=== PATIENT | female | born 1980 | race American Indian/Alaskan Native ===

== ENCOUNTER 2020-10-01 15:05 | Emergency (ER) | payer SELFPAY ==
--- NOTE | 2020-10-01 18:26 | Event Note ---
ED Screening Note Date of service: 10/01/20 Time: 18:23 ED Screening Note: 40-year-old female patient presents emergency department with complaints of abdominal pain, nausea, vomiting, and diarrhea progressively worsening for the last several months. Pain is primarily localized to the right lower quadrant. She endorses a 69 pound unintentional weight loss over the last 3 months. Patient was evaluated by a nurse practitioner at a local [facility], who ordered labs and instructed patient to come to the emergency department for further evaluation once the results became available. Patient was found to have a leukocytosis of 17,000 as well as a CRP of 22. Patient has never been evaluated outside of urgent care/emergency department for progressively worsening symptoms. General: Awake, appropriately interactive, no acute distress. Neck: Supple. Full range of motion intact. Cardiovascular: Normal peripheral perfusion. Pulmonary: No respiratory distress. Patient is speaking normally without use of accessory muscles. Abdomen: Right lower quadrant tenderness. Skin: No apparent rashes or lesions. Neurological: No facial asymmetry. Speech is clear. Follows commands. Patient is alert and oriented. Musculoskeletal: Moves all four extremities spontaneously with normal range of motion. Psych: Cooperative. Appropriate mood and affect. Labs from outside facility reviewed. CT of the abdomen/pelvis ordered. Attending emergency physician notified. I have greeted and performed a focused rapid initial assessment of this patient. A comprehensive ED assessment and evaluation of the patient, analysis of all test results, and completion of the medical decision-making process will be conducted by additional ED providers. This initial assessment/diagnostic orders/clinical plan/treatment(s) is/are subject to change based on patients health status, clinical progression and re-assessment. Further treatment and workup at subsequent clinical provider's discretion. Patient/guardian urged not to elope from the ED as their condition may be serious if not clinically assessed and managed.
[2020-10-01 18:43] LABS: Basophils # (Auto) 0.1 K/mm3 (0.0-0.1); Basophils % (Auto) 0.4 % (0.0-1.8); Eosinophils # (Auto) 0.1 K/mm3 (0.0-0.4); Eosinophils % (Auto) 0.5 % (0.0-4.3); Hematocrit 36.9 % (30.3-42.9); Hemoglobin 12.6 gm/dl (10.1-14.3); Lymphocytes # (Auto) 4.2 K/mm3 (1.2-5.4); Lymphocytes % (Auto) 28.3 % (13.4-35.0); Mean Corpuscular HGB Conc 34 % (30-34); Mean Corpuscular Volume 112 fl (79-97); Monocytes # (Auto) 0.4 K/mm3 (0.0-0.8); Monocytes % (Auto) 2.6 % (0.0-7.3); Platelet Count 433 K/mm3 (140-440); Red Blood Count 3.29 M/mm3 (3.65-5.03)
[2020-10-01 19:06] LABS: Alanine Aminotransferase 38 units/L (7-56); Albumin 4.3 g/dL (3.9-5); BUN/Creatinine Ratio 12; Blood Urea Nitrogen 12 mg/dL (7-17); Calcium 9.2 mg/dL (8.4-10.2); Hemolysis Index 10
[2020-10-01 19:11] LABS: Bilirubin,Urine SM (Negative); Blood,Urine NEG (Negative); Color,Urine Amber (Yellow); Hyaline Casts,Urine 2 /LPF; Mucus,Urine 3+ /HPF
[2020-10-01 19:16] LABS: Protein,Urine >500 mg/dL (Negative)
[2020-10-01 20:23] LABS: Ictotest,Urine Negative (Negative)
--- NOTE | 2020-10-01 22:24 | Cat Scan Report ---
CT abdomen pelvis w con INDICATION / CLINICAL INFORMATION: Pt states abd pain / nausea / vomiting / 70 lb weight loss. TECHNIQUE: All CT scans at this location are performed using CT dose reduction for ALARA by means of automated e xposure control. COMPARISON: 03/17/2018 FINDINGS: No free fluid is seen in the abdomen. The gallbladder has been surgically removed. Diffuse fatty infi ltration is present in the liver without focal abnormality. The spleen, kidneys, pancreas, adrenal gl ands and great vessels are normal. No enlarged mesenteric or retroperitoneal lymph nodes are identifi ed. In the pelvis, no free fluid is seen. There is questionable thickening of the wall of the proximal as cending colon. No enlarged lymph nodes are identified. The bladder is minimally distended. The append ix is normal. No significant skeletal abnormality is present. IMPRESSION: 1. Questionable thickening of the wall the proximal ascending colon 2. Diffuse fatty infiltration in the liver without focal abnormality 3. Cholecystectomy Signer Name: Tim DUNCAN Signed: 10/01/2020 10:20 PM Workstation Name: [id number]
[2020-10-02] MEDS ORDERED: ONDANSETRON 4 MG/2 ML INJ IV ONE ×2 (00:25→02:25)
[2020-10-02] MEDS ORDERED: SODIUM CHLORIDE 0.9% 1000 ML 1,000 ML IV ONE (00:25)
[2020-10-02] MEDS ORDERED: HYDROmorphone 1 MG/1 ML INJ IV ONE ×2 (00:25→01:58)
--- NOTE | 2020-10-02 00:25 | Emergency Department Report ---
ED Abdominal Pain HPI - General Chief Complaint: Nausea/Vomiting/Diarrhea Stated Complaint: REFERRED BY DOCTOR - STOMACH PUI?: No Time Seen by Provider: 10/02/20 00:20 Source: patient Mode of arrival: Ambulatory Limitations: No Limitations - History of Present Illness Initial Comments: Patient is a 40-year-old female who presents emergency room with complaints of right lower quadrant pain and nausea and vomiting and diarrhea. Patient states she also having dizziness. Patient states that her abdominal pain started approximately week ago. Patient states that he has been having intermittent nausea and vomiting and diarrhea for the past 3 months. Patient states that her dizziness started 3 days ago. Patient states her symptoms are worsening. Patient states her abdominal pain is a 10 out of 10. Patient states a stabbing pain. Patient denies fever and chills. Patient states that she saw her primary care today and they found her to have an elevated WBC. Patient presents her lab results from her primary care. Patient's labs significant for elevated WBC, 17.9 elevated C-reactive protein, low folate and low B12 and abnormal CBC Patient denies recent travel. Patient denies recent international travel. Kirk elliott denies exposure to the novel coronavirus. Patient denies sick contacts. Patient denies fever and chills. Patient denies cough. Patient denies coming in contact with anybody with symptoms of the novel coronavirus. MD Complaint: abdominal pain -: Sudden Location: RLQ Radiation: none Migration to: no migration Severity: severe Severity scale (0 -10): 10 Quality: stabbing Consistency: constant Improves With: rest Worsens With: eating, vomiting, movement Associated Symptoms: nausea, vomiting, diarrhea, anorexia. denies: fever, chills, constipation, dysuria, hematemesis, hematochezia, melena, hematuria, syncope - Related Data LMP (females 10-50): unknown Previous Rx's Medication Instructions Recorded Last Taken Type Ciprofloxacin HCl [Cipro] 500 mg PO BID 10 Days #20 tablet 03/17/18 Unknown Rx Ciprofloxacin HCl 500 mg PO BID 10 Days #20 tablet 10/02/20 Unknown Rx HYDROcodone/APAP 7.5-325 [[place] 1 each PO Q6HR PRN #12 tablet 10/02/20 Unknown Rx 7.5/325] Ondansetron [Zofran Odt] 4 mg PO Q6HR PRN #15 tab.rapdis 10/02/20 Unknown Rx metroNIDAZOLE [Flagyl] 500 mg PO Q8HR 10 Days #30 tab 10/02/20 Unknown Rx Allergies Allergy/AdvReac Type Severity Reaction Status Date / Time No Known Allergies Allergy Unverified 03/17/18 18:10 ED Review of Systems ROS: Stated complaint: REFERRED BY DOCTOR - STOMACH Other details as noted in HPI Constitutional: denies: chills, fever Eyes: denies: eye pain, eye discharge, vision change ENT: denies: ear pain, throat pain Respiratory: denies: cough, shortness of breath, wheezing Cardiovascular: denies: chest pain, palpitations Endocrine: no symptoms reported Gastrointestinal: as per HPI, abdominal pain, nausea, vomiting, diarrhea. denies: constipation, hematemesis, melena, hematochezia Genitourinary: denies: urgency, dysuria, discharge Musculoskeletal: denies: back pain, joint swelling, arthralgia Skin: denies: rash, lesions Neurological: denies: headache, weakness, paresthesias Psychiatric: denies: anxiety, depression Hematological/Lymphatic: denies: easy bleeding, easy bruising ED Past Medical Hx - Past Medical History Previous Medical History?: No Additional medical history: kidney infection - Surgical History Past Surgical History?: Yes Hx Cholecystectomy: Yes Additional Surgical History: hysterectomy - Social History Smoking Status: Never Smoker Substance Use Type: None - Medications Home Medications: Home Medications Medication Instructions Recorded Confirmed Last Taken Type Ciprofloxacin HCl [Cipro] 500 mg PO BID 10 Days #20 tablet 03/17/18 Unknown Rx Ciprofloxacin HCl 500 mg PO BID 10 Days #20 tablet 10/02/20 Unknown Rx HYDROcodone/APAP 7.5-325 [[place] 1 each PO Q6HR PRN #12 tablet 10/02/20 Unknown Rx 7.5/325] Ondansetron [Zofran Odt] 4 mg PO Q6HR PRN #15 tab.rapdis 10/02/20 Unknown Rx metroNIDAZOLE [Flagyl] 500 mg PO Q8HR 10 Days #30 tab 10/02/20 Unknown Rx ED Physical Exam - General Limitations: No Limitations ED Course Vital Signs 10/01/20 10/02/20 10/02/20 17:14 02:14 02:32 Temperature 98.8 F Pulse Rate 99 H 87 Respiratory 16 Rate Blood Pressure 117/80 Blood Pressure 146/102 [Right] O2 Sat by Pulse 97 97 Oximetry 10/02/20 10/02/20 10/02/20 02:34 02:46 03:00 Temperature Pulse Rate Respiratory 18 Rate Blood Pressure 117/80 116/62 Blood Pressure [Right] O2 Sat by Pulse 98 91 Oximetry 10/02/20 03:16 Temperature Pulse Rate Respiratory Rate Blood Pressure 116/62 Blood Pressure [Right] O2 Sat by Pulse 94 Oximetry - Reevaluation(s) Reevaluation #1: Patient states her pain is still severe. Patient will be given another [place] gram of Dilaudid. 10/02/20 01:57 Reevaluation #2: Patient states her pain is much better. Patient states her nausea is resolved. Patient tolerated p.o. challenge. I discussed all results and clinical findings with patient. I discussed plan of care with patient. Patient agrees with plan of care. Patient is stable for discharge. Patient will be discharged home. Patient given discharge instructions. Patient voiced understanding of discharge instructions. 10/02/20 03:45 ED Medical Decision Making - Lab Data Result diagrams: 10/01/20 18:31 10/01/20 18:31 - Radiology Data Radiology results: report reviewed CT abdomen pelvis w con INDICATION / CLINICAL INFORMATION: Pt states abd pain / nausea / vomiting / 70 lb weight loss. TECHNIQUE: All CT scans at this location are performed using CT dose reduction for ALARA by means of automated exposure control. COMPARISON: 03/17/2018 FINDINGS: No free fluid is seen in the abdomen. The gallbladder has been surgically removed. Diffuse fatty infiltration is present in the liver without focal abnormality. The spleen, kidneys, pancreas, adrenal glands and great vessels are normal. No enlarged mesenteric or retroperitoneal lymph nodes are identified. In the pelvis, no free fluid is seen. There is questionable thickening of the wall of the proximal ascending colon. No enlarged lymph nodes are identified. The bladder is minimally distended. The appendix is normal. No significant skeletal abnormality is present. IMPRESSION: 1. Questionable thickening of the wall the proximal ascending colon 2. Diffuse fatty infiltration in the liver without focal abnormality 3. Cholecystectomy - Medical Decision Making Patient is a 40-year-old female who presents emergency room with complaints of nausea, vomiting, diarrhea. Patient given Dilaudid and Zofran and her symptoms improved. Patient eventually tolerated a p.o. challenge. Patient states she feels much better with treatment. Patient had labs done which were essentially unremarkable except for elevated WBC and UTI. Patient given IV fluids and IV Zofran as well in the ER. Patient had a CT scan of the abdomen which shows possible colitis. Patient notified consistent with gastroenteritis. Patient will be referred to a dialysis nurse for further evaluation and treatment. Patient not require inpatient or further emergency medical services. Patient stable for discharge. Patient discharged home. Patient given discharge directions. - Differential Diagnosis Abdominal pain, gastroenteritis, nausea, vomiting, diarrhea, Critical care attestation.: If time is entered above; I have spent that time in minutes in the direct care of this critically ill patient, excluding procedure time. ED Disposition Clinical Impression: Colitis Abdominal pain Qualifiers: Abdominal location: right lower quadrant Qualified Code(s): R10.31 - Right lower quadrant pain Diarrhea Qualifiers: Diarrhea type: unspecified type Qualified Code(s): R19.7 - Diarrhea, unspecified UTI (urinary tract infection) Qualifiers: Urinary tract infection type: acute cystitis Hematuria presence: with hematuria Qualified Code(s): N30.01 - Acute cystitis with hematuria Nausea & vomiting Qualifiers: Vomiting type: unspecified Vomiting Intractability: non-intractable Qualified Code(s): R11.2 - Nausea with vomiting, unspecified Disposition: TO HOME OR SELFCARE Is pt being admited?: No Does the pt Need Aspirin: No Condition: Stable Instructions: Nausea and Vomiting, Adult, Viral Gastroenteritis, Adult, [id number], Antibiotic Medicine, Adult, [id number], Urinary Tract Infection, Adult, Food Choices to Help Relieve Diarrhea, Adult, Diarrhea, Adult, [id number] Additional Instructions: Patient to follow-up with primary care in 2 to 3 days. Patient to follow-up with dialysis nurse in 2 to 3 days. Patient to rest. Patient to increase water. Patient to avoid strenuous exercise or heavy lifting until cleared by primary care dialysis nurse. Patient to eat a brat diet. Patient to start a probiotic. Patient to take Tylenol as needed for pain. Patient to take meds as directed. Patient to return to the ER if condition worsens, changes or new symptoms arise. Prescriptions: Ciprofloxacin HCl 500 mg PO BID 10 Days #20 tablet metroNIDAZOLE [Flagyl] 500 mg PO Q8HR 10 Days #30 tab HYDROcodone/APAP 7.5-325 [[place] 7.5/325] 1 each PO Q6HR PRN #12 tablet PRN Reason: Pain Ondansetron [Zofran Odt] 4 mg PO Q6HR PRN #15 tab.rapdis PRN Reason: Nausea And Vomiting Time of Disposition: 02:12
[2020-10-02] MEDS ORDERED: PIPERACIL/TAZOBACTA 4.5/NS 100 4.5 GM/100 ML VIAL IV ONE (01:58)
[2020-10-02 03:28] VITALS: BP 116/62
== END 2020-10-02 04:14 | disposition home or self-care (01) ==
LOC: ED 15:05
DX: K52.9 Noninfective gastroenteritis and colitis, unspecified (principal); N39.0 Urinary tract infection, site not specified; R11.2 Nausea with vomiting, unspecified; Z90.49 Acquired absence of other specified parts of digestive tract; Z90.710 Acquired absence of both cervix and uterus; Z79.899 Other long term (current) drug therapy
CPT/HCPCS: 36415; 74177; 80053; 81001; 83735; 84443; 84703; 85025; 96361; 96365; 96375; 96376; 99284; J1170; J2405; J2543; J7030; Q9967

== ENCOUNTER 2021-02-04 13:32 | Emergency (ER) | payer SELFPAY ==
[2021-02-04 13:43] VITALS: BP 139/101
--- NOTE | 2021-02-04 14:51 | Emergency Department Report ---
ED General Adult HPI - General Chief complaint: Medical Clearance Stated complaint: HANDS AND FEET PAIN Time Seen by Provider: 02/04/21 14:15 Source: patient Mode of arrival: Ambulatory Limitations: No Limitations - History of Present Illness Initial comments: Is a 40-year-old female presents emergency department with chief complaint of sharp burning and stinging pain in her arms and legs shooting down from her knees to her feet and her elbows to her hands over the past 5 months. She reports in August she got her second Pfizer COVID-19 vaccine and shortly after she started to have the symptoms. She had not been seen by anybody about this complaint in the past. She states she has pain with any movement or touching of the extremities. Her pain intensifies with any movement. She states she has lost 60 pounds during this. She denies any nausea, vomiting, diarrhea, fever, chills, night sweats, headache, dizziness, blurry vision, chest pain, shortness of breath, weakness or any other associated symptoms. - Related Data Previous Rx's Medication Instructions Recorded Last Taken Type Ciprofloxacin HCl [Cipro] 500 mg PO BID 10 Days #20 tablet 03/17/18 Unknown Rx Ciprofloxacin HCl 500 mg PO BID 10 Days #20 tablet 10/02/20 Unknown Rx HYDROcodone/APAP 7.5-325 [[place] 1 each PO Q6HR PRN #12 tablet 10/02/20 Unknown Rx 7.5/325] Ondansetron [Zofran Odt] 4 mg PO Q6HR PRN #15 tab.rapdis 10/02/20 Unknown Rx metroNIDAZOLE [Flagyl] 500 mg PO Q8HR 10 Days #30 tab 10/02/20 Unknown Rx Gabapentin 100 mg PO Q8HR #30 capsule 02/04/21 Unknown Rx Allergies Allergy/AdvReac Type Severity Reaction Status Date / Time No Known Allergies Allergy Verified 02/04/21 13:47 ED Review of Systems ROS: Stated complaint: HANDS AND FEET PAIN Other details as noted in HPI Comment: All other systems reviewed and negative Constitutional: denies: chills, fever Eyes: denies: eye pain, eye discharge, vision change ENT: denies: ear pain, throat pain Respiratory: denies: cough, shortness of breath, wheezing Cardiovascular: denies: chest pain, palpitations Endocrine: no symptoms reported Gastrointestinal: denies: abdominal pain, nausea, diarrhea Genitourinary: denies: urgency, dysuria, discharge Musculoskeletal: denies: back pain, joint swelling, arthralgia Skin: denies: rash, lesions Neurological: as per HPI. denies: headache, weakness, paresthesias Psychiatric: denies: anxiety, depression Hematological/Lymphatic: denies: easy bleeding, easy bruising ED Past Medical Hx - Past Medical History Previous Medical History?: No Additional medical history: kidney infection - Surgical History Past Surgical History?: Yes Hx Cholecystectomy: Yes Additional Surgical History: hysterectomy - Social History Smoking Status: Never Smoker Substance Use Type: None - Medications Home Medications: Home Medications Medication Instructions Recorded Confirmed Last Taken Type Ciprofloxacin HCl [Cipro] 500 mg PO BID 10 Days #20 tablet 03/17/18 Unknown Rx Ciprofloxacin HCl 500 mg PO BID 10 Days #20 tablet 10/02/20 Unknown Rx HYDROcodone/APAP 7.5-325 [[place] 1 each PO Q6HR PRN #12 tablet 10/02/20 Unknown Rx 7.5/325] Ondansetron [Zofran Odt] 4 mg PO Q6HR PRN #15 tab.rapdis 10/02/20 Unknown Rx metroNIDAZOLE [Flagyl] 500 mg PO Q8HR 10 Days #30 tab 10/02/20 Unknown Rx Gabapentin 100 mg PO Q8HR #30 capsule 02/04/21 Unknown Rx ED Physical Exam - General Limitations: No Limitations General appearance: alert, in no apparent distress - Head Head exam: Present: atraumatic, normocephalic - Eye Eye exam: Present: normal appearance, PERRL, EOMI - ENT ENT exam: Present: normal exam, normal orophraynx, mucous membranes moist - Neck Neck exam: Present: normal inspection, full ROM. Absent: tenderness, meningismus - Respiratory Respiratory exam: Present: normal lung sounds bilaterally. Absent: respiratory distress, wheezes, rales, rhonchi, stridor - Cardiovascular Cardiovascular Exam: Present: regular rate, normal rhythm, normal heart sounds. Absent: systolic murmur, diastolic murmur, rubs, gallop - GI/Abdominal GI/Abdominal exam: Present: soft, normal bowel sounds. Absent: distended, tenderness, guarding, rebound, rigid - Extremities Exam Extremities exam: Present: normal inspection, full ROM, tenderness (Tenderness palpation of bilateral upper and lower extremities, no posterior calf tenderness, negative Homans' sign bilaterally.). Absent: pedal edema, calf tenderness - Back Exam Back exam: Present: normal inspection, full ROM. Absent: CVA tenderness (R), CVA tenderness (L), muscle spasm, paraspinal tenderness, vertebral tenderness - Neurological Exam Neurological exam: Present: alert, oriented X3, CN II-XII intact, normal gait, reflexes normal (Normal 2+ bilateral reflexes to the bilateral triceps, brachial radialis, patella and Achilles.) - Psychiatric Psychiatric exam: Present: normal affect, normal mood - Skin Skin exam: Present: warm, dry, intact, normal color. Absent: rash ED Course Vital Signs 02/04/21 13:39 Temperature 98.0 F Pulse Rate 84 Respiratory 16 Rate Blood Pressure 139/101 O2 Sat by Pulse 99 Oximetry ED Medical Decision Making - Lab Data Result diagrams: 02/04/21 14:50 02/04/21 14:50 Lab Results 02/04/21 02/04/21 Range/Units 14:50 14:50 WBC 10.9 (4.5-11.0) K/mm3 RBC 4.75 (3.65-5.03) M/mm3 Hgb 14.7 H (10.1-14.3) gm/dl Hct 45.2 H (30.3-42.9) % MCV 95 (79-97) fl MCH 31 (28-32) pg MCHC 33 (30-34) % RDW 15.6 H (13.2-15.2) % Plt Count 398 (140-440) K/mm3 Lymph % (Auto) 23.9 (13.4-35.0) % [place] % (Auto) 6.3 (0.0-7.3) % Eos % (Auto) 0.4 (0.0-4.3) % Baso % (Auto) 0.1 (0.0-1.8) % Lymph # (Auto) 2.6 (1.2-5.4) K/mm3 [place] # (Auto) 0.7 (0.0-0.8) K/mm3 Eos # (Auto) 0.0 (0.0-0.4) K/mm3 Baso # (Auto) 0.0 (0.0-0.1) K/mm3 Seg Neutrophils % 69.3 (40.0-70.0) % Seg Neutrophils # 7.5 (1.8-7.7) K/mm3 Sodium 139 (137-145) mmol/L Potassium 4.5 (3.6-5.0) mmol/L Chloride 103.2 (98-107) mmol/L Carbon Dioxide 25 (22-30) mmol/L Anion Gap 15 mmol/L BUN 8 (7-17) mg/dL Creatinine 0.7 (0.6-1.2) mg/dL Estimated GFR > 60 ml/min BUN/Creatinine Ratio 11 % Glucose 92 (65-100) mg/dL Calcium 9.6 (8.4-10.2) mg/dL Total Bilirubin 0.30 (0.1-1.2) mg/dL AST 26 (5-40) units/L ALT 23 (7-56) units/L Alkaline Phosphatase 112 (35-129) units/L Total Creatine Kinase 59 (30-135) units/L Total Protein 7.3 (6.3-8.2) g/dL Albumin 4.2 (3.9-5) g/dL Albumin/Globulin Ratio 1.4 % - Medical Decision Making Patient nontoxic no acute distress. No neuro deficits on exam. We will treat the patient with gabapentin and recommended outpatient follow-up with neurology and primary care. Return to the ER with any change or worsening symptoms. She was ambulatory with a steady gait. NIH score 0. - Differential Diagnosis Neuropathy, vaccine reaction, fibromyalgia Critical care attestation.: If time is entered above; I have spent that time in minutes in the direct care of this critically ill patient, excluding procedure time. ED Disposition Clinical Impression: Adverse reaction to COVID-19 vaccine, Neuropathy Disposition: 01 HOME / SELF CARE / HOMELESS Is pt being admited?: No Condition: Stable Prescriptions: Gabapentin 100 mg PO Q8HR #30 capsule Referrals: [facility] [Provider Group] - 3-5 Days ANASTASIYA STEVENSON MD [Staff Physician] - 3-5 Days ULISSES OWENS MD [Staff Physician] - 3-5 Days Forms: Work/School Release Form(ED)
[2021-02-04 15:33] LABS: Alanine Aminotransferase 23 units/L (7-56); Albumin 4.2 g/dL (3.9-5); Blood Urea Nitrogen 8 mg/dL (7-17); Calcium 9.6 mg/dL (8.4-10.2); Hemolysis Index 7
[2021-02-04 15:44] LABS: Basophils % (Auto) 0.1 % (0.0-1.8); Eosinophils % (Auto) 0.4 % (0.0-4.3); Hematocrit 45.2 % (30.3-42.9); Hemoglobin 14.7 gm/dl (10.1-14.3); Lymphocytes # (Auto) 2.6 K/mm3 (1.2-5.4); Lymphocytes % (Auto) 23.9 % (13.4-35.0); Mean Corpuscular HGB Conc 33 % (30-34); Mean Corpuscular Volume 95 fl (79-97); Monocytes # (Auto) 0.7 K/mm3 (0.0-0.8); Monocytes % (Auto) 6.3 % (0.0-7.3); Platelet Count 398 K/mm3 (140-440); Red Blood Count 4.75 M/mm3 (3.65-5.03); Red Cell Distribution Width 15.6 % (13.2-15.2)
[2021-02-04 15:47] LABS: BUN/Creatinine Ratio 11
== END 2021-02-04 16:43 | disposition home or self-care (01) ==
LOC: ED 13:32
DX: G62.9 Polyneuropathy, unspecified (principal); T50.Z95A Adverse effect of other vaccines and biological substances, initial encounter; Z90.49 Acquired absence of other specified parts of digestive tract; Z90.710 Acquired absence of both cervix and uterus; Z79.899 Other long term (current) drug therapy
CPT/HCPCS: 36415; 80053; 82550; 85025; 99283

== ENCOUNTER 2021-03-31 13:39 | Emergency (ER) | payer SELFPAY ==
[2021-03-31 13:48] VITALS: BP 142/101
--- NOTE | 2021-03-31 15:37 | Event Note ---
ED Screening Note ED Screening Note: Patient presents for muscle cramps and spasms for 2 weeks She states that she also has diarrhea and black stool Patient states that she has been having intermittent episodes of syncope This initial assessment/diagnostic orders/clinical plan/treatment(s) is/are subject to change based on patients health status, clinical progression and re- assessment by fellow clinical providers in the ED. Further treatment and workup at subsequent clinical providers discretion. Patient/guardian urged not to elope from the ED as their condition may be serious if not clinically assessed and managed. Initial orders include: Labs, EKG, UA, CT
[2021-03-31 16:25] LABS: Basophils % (Auto) 0.2 % (0.0-1.8); Eosinophils # (Auto) 0.1 K/mm3 (0.0-0.4); Eosinophils % (Auto) 0.5 % (0.0-4.3); Hematocrit 42.5 % (30.3-42.9); Hemoglobin 13.2 gm/dl (10.1-14.3); Mean Corpuscular HGB Conc 31 % (30-34); Mean Corpuscular Volume 100 fl (79-97); Monocytes # (Auto) 0.6 K/mm3 (0.0-0.8); Monocytes % (Auto) 5.4 % (0.0-7.3); Platelet Count 357 K/mm3 (140-440); Red Blood Count 4.25 M/mm3 (3.65-5.03); Red Cell Distribution Width 17.6 % (13.2-15.2)
[2021-03-31 16:26] LABS: Bilirubin,Urine NEG (Negative); Blood,Urine NEG (Negative); Color,Urine Amber (Yellow); Hyaline Casts,Urine 6 /LPF; Mucus,Urine 3+ /HPF
[2021-03-31 16:34] LABS: INR 0.86 (0.87-1.13)
[2021-03-31 16:45] LABS: Alanine Aminotransferase 26 units/L (7-56); Albumin 4.7 g/dL (3.9-5); Blood Urea Nitrogen 11 mg/dL (7-17); Calcium 9.7 mg/dL (8.4-10.2); Hemolysis Index 24; Partial Thromboplastin Time 30.8 Sec. (24.2-36.6)
[2021-03-31 16:47] LABS: BUN/Creatinine Ratio 16
--- NOTE | 2021-03-31 16:49 | Cat Scan Report ---
CT head/brain wo con INDICATION: syncope. TECHNIQUE: Routine CT head. All CT scans at this location are performed using CT dose reduction for A CINDY by means of automated exposure control. COMPARISON: None. FINDINGS: Intracranial: Thayer-white matter differentiation is maintained. No intracranial hemorrhage. No extra a xial collection. No hydrocephalus. No herniation. Empty appearance of the sella which is filled by CS F. This is nonspecific and can be seen in normal individuals and also be seen in the setting of intra cranial hypotension. Sinuses: Paranasal sinuses and mastoid air cells are essentially clear. Orbits: Globes are intact. Calvarium: No acute fracture. IMPRESSION: 1. No acute intracranial abnormality to explain patient's symptoms. Signer Name: Prabhjot Rich MD Signed: 03/31/2021 4:45 PM Workstation Name: [id number]
--- NOTE | 2021-03-31 17:25 | Emergency Department Report ---
ED General Adult HPI - General Chief complaint: Syncope Stated complaint: MUSCLE SPASMS/SHAKING/PASSED OUT PUI?: No Time Seen by Provider: 03/31/21 16:17 Source: patient Mode of arrival: Ambulatory Limitations: No Limitations - History of Present Illness Initial comments: Chief complaint: "I have a lot going on." HPI: This is a 40-year-old female with history of neuropathy who presents with memory loss repetitive speech. She stated that her boyfriend states that she has been rambling. She feels as of time is missing. He recently has had black stool with crampy abdominal pain and diarrhea. She does admit to depression. She denies suicidal ideation. She has generalized muscle spasm. She does not have health insurance. She has been unemployed for the last year and a half. 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 She feels as if she must have been passing out. She has generalized shaking in bed and feels out of it. She has had unintentional weight loss 70 pounds. -: Gradual, month(s) (Several months to a year) Severity scale (0 -10): 3 Quality: other (Diffuse muscle spasms) Consistency: intermittent Improves with: none Worsens with: none Associated Symptoms: other (Depression abdominal pain diarrhea shaking episodes memory loss) - Related Data Previous Rx's Medication Instructions Recorded Last Taken Type Ciprofloxacin HCl [Cipro] 500 mg PO BID 10 Days #20 tablet 03/17/18 Unknown Rx Ciprofloxacin HCl 500 mg PO BID 10 Days #20 tablet 10/02/20 Unknown Rx HYDROcodone/APAP 7.5-325 [[place] 1 each PO Q6HR PRN #12 tablet 10/02/20 Unknown Rx 7.5/325] Ondansetron [Zofran Odt] 4 mg PO Q6HR PRN #15 tab.rapdis 10/02/20 Unknown Rx metroNIDAZOLE [Flagyl] 500 mg PO Q8HR 10 Days #30 tab 10/02/20 Unknown Rx Gabapentin 300 mg PO TID #90 capsule 02/04/21 Unknown Rx Gabapentin 300 mg PO TID #90 capsule 03/31/21 Unknown Rx Allergies Allergy/AdvReac Type Severity Reaction Status Date / Time No Known Allergies Allergy Verified 03/31/21 13:48 ED Review of Systems ROS: Stated complaint: MUSCLE SPASMS/SHAKING/PASSED OUT Other details as noted in HPI Comment: All other systems reviewed and negative Constitutional: denies: chills, fever, malaise Respiratory: denies: cough, shortness of breath Cardiovascular: other (Near syncope). denies: chest pain Gastrointestinal: abdominal pain, diarrhea Musculoskeletal: myalgia Psychiatric: depression ED Past Medical Hx - Past Medical History Previous Medical History?: Yes Additional medical history: kidney infection, "neuropathy" - Surgical History Past Surgical History?: Yes Hx Cholecystectomy: Yes Additional Surgical History: hysterectomy - Family History Family history: diabetes, hypertension - Social History Smoking Status: Never Smoker Substance Use Type: Alcohol, Marijuana - Medications Home Medications: Home Medications Medication Instructions Recorded Confirmed Last Taken Type Ciprofloxacin HCl [Cipro] 500 mg PO BID 10 Days #20 tablet 03/17/18 Unknown Rx Ciprofloxacin HCl 500 mg PO BID 10 Days #20 tablet 10/02/20 Unknown Rx HYDROcodone/APAP 7.5-325 [[place] 1 each PO Q6HR PRN #12 tablet 10/02/20 Unknown Rx 7.5/325] Ondansetron [Zofran Odt] 4 mg PO Q6HR PRN #15 tab.rapdis 10/02/20 Unknown Rx metroNIDAZOLE [Flagyl] 500 mg PO Q8HR 10 Days #30 tab 10/02/20 Unknown Rx Gabapentin 300 mg PO TID #90 capsule 02/04/21 Unknown Rx Gabapentin 300 mg PO TID #90 capsule 03/31/21 Unknown Rx ED Physical Exam - General Limitations: No Limitations General appearance: alert, in no apparent distress - Head Head exam: Present: atraumatic, normocephalic - Eye Eye exam: Present: normal appearance - ENT ENT exam: Present: mucous membranes moist - Neck Neck exam: Present: normal inspection, full ROM - Respiratory Respiratory exam: Present: normal lung sounds bilaterally. Absent: respiratory distress, wheezes, rales, rhonchi - Cardiovascular Cardiovascular Exam: Present: regular rate, normal rhythm, normal heart sounds. Absent: systolic murmur, diastolic murmur, rubs, gallop - GI/Abdominal GI/Abdominal exam: Present: soft, normal bowel sounds. Absent: distended, tenderness, guarding, rebound - Extremities Exam Extremities exam: Present: normal inspection - Neurological Exam Neurological exam: Present: alert, oriented X3, CN II-XII intact, normal gait - Expanded Neurological Exam Expanded Patient oriented to: Present: person, place, time Speech: Present: fluid speech Cranial nerves: EOM's Intact: Normal Cerebellar function: Finger to Nose: Normal Sensory exam: Upper Extremity Light Touch: Normal Motor strength exam: RUE: 5, LUE: 5, RLE: 5, LLE: 5 Best Eye Response (Sumit): (4) open spontaneously Best Motor Response (Sumit): (6) obeys commands Best Verbal Response (Sumit): (5) oriented [place] Total: 15 - Psychiatric Psychiatric exam: Present: normal affect, normal mood - Skin Skin exam: Present: warm, dry, intact, normal color. Absent: rash ED Course Vital Signs 03/31/21 03/31/21 13:45 16:50 Temperature 98.3 F Pulse Rate 88 79 Respiratory 14 Rate Blood Pressure 142/101 [Right] O2 Sat by Pulse 100 100 Oximetry ED Medical Decision Making - Lab Data Result diagrams: 03/31/21 16:08 03/31/21 16:08 Laboratory Results - last 24 hr 03/31/21 03/31/21 03/31/21 16:08 16:08 16:08 WBC 11.2 H RBC 4.25 Hgb 13.2 Hct 42.5 MCV 100 H MCH 31 MCHC 31 RDW 17.6 H Plt Count 357 Lymph % (Auto) 36.0 H Marion % (Auto) 5.4 Eos % (Auto) 0.5 Baso % (Auto) 0.2 Lymph # (Auto) 4.0 Marion # (Auto) 0.6 Eos # (Auto) 0.1 Baso # (Auto) 0.0 Seg Neutrophils % 57.9 Seg Neutrophils # 6.5 PT 12.7 INR 0.86 L APTT 30.8 Carbon Dioxide 25 BUN 11 Creatinine 0.7 Estimated GFR > 60 BUN/Creatinine Ratio 16 Glucose 116 H Calcium 9.7 Magnesium 1.90 Total Bilirubin 0.70 AST 27 ALT 26 Alkaline Phosphatase 151 H Troponin T Total Protein 8.3 H Albumin 4.7 Albumin/Globulin Ratio 1.3 HCG, Qual Urine Color Urine Turbidity Urine pH Ur Specific Stephenson Urine Protein Urine Glucose (UA) Urine Ketones Urine Blood Urine Nitrite Urine Bilirubin Urine Urobilinogen Ur Leukocyte Esterase Urine WBC (Auto) Urine RBC (Auto) U Epithel Cells (Auto) Hyaline Casts Urine Mucus 03/31/21 03/31/21 03/31/21 16:08 16:08 Unknown WBC RBC Hgb Hct MCV MCH MCHC RDW Plt Count Lymph % (Auto) Marion % (Auto) Eos % (Auto) Baso % (Auto) Lymph # (Auto) Marion # (Auto) Eos # (Auto) Baso # (Auto) Seg Neutrophils % Seg Neutrophils # PT INR APTT Carbon Dioxide BUN Creatinine Estimated GFR BUN/Creatinine Ratio Glucose Calcium Magnesium Total Bilirubin AST ALT Alkaline Phosphatase Troponin T < 0.010 Total Protein Albumin Albumin/Globulin Ratio HCG, Qual Negative Urine Color Mala Urine Turbidity Slightly-cloudy Urine pH 5.0 Ur Specific Stephenson 1.026 Urine Protein 30 mg/dl Urine Glucose (UA) Neg Urine Ketones Neg Urine Blood Neg Urine Nitrite Neg Urine Bilirubin Neg Urine Urobilinogen 2.0 Ur Leukocyte Esterase Neg Urine WBC (Auto) 2.0 Urine RBC (Auto) 2.0 U Epithel Cells (Auto) 19.0 H Hyaline Casts 6 Urine Mucus 3+ - EKG Data -: EKG Interpreted by Ut EKG shows normal: sinus rhythm, axis, intervals, QRS complexes, ST-T waves Rate: normal - EKG Data Interpretation: normal EKG 03/31/21 17:25 EKG obtained 1356 EKG interpreted by co Normal sinus rhythm normal rate normal axis normal intervals no ST elevation no ST-T signs of ischemia normal EKG rate 80 bpm - Radiology Data Radiology results: report reviewed Patient Name: MARINA BOWMAN Gender: Female Date of : 1980 Referring Provider: GIULIA BAKER Organization: [facility] Accession Number: [id number] Requested Date: March 31, 2021 15:36 Report Status: Final Requested Procedure: 1 Procedure Description: CT head/brain wo con Modality: CT Findings Reporting MD: Prabhjot Rich Dictation Time: March 31, 2021 15:45 Public Policy Mediator: Not available Harness Tier Date: CT head/brain wo con INDICATION: syncope. TECHNIQUE: Routine CT head. All CT scans at this location are performed using CT dose reduction for ALARA by means of automated exposure control. COMPARISON: None. FINDINGS: Intracranial: Thayer-white matter differentiation is maintained. No intracranial hemorrhage. No extra axial collection. No hydrocephalus. No herniation. Empty appearance of the sella which is filled by CSF. This is nonspecific and can be seen in normal individuals and also be seen in the setting of intracranial hypotension. Sinuses: Paranasal sinuses and mastoid air cells are essentially clear. Orbits: Globes are intact. Calvarium: No acute fracture. IMPRESSION: 1. No acute intracranial abnormality to explain patient's symptoms. Signer Name: Prabhjot Rich MD Signed: 03/31/2021 3:45 PM Workstation Name: [id number] - Medical Decision Making Constitutional symptoms: Near syncope, muscle spasms, abdominal pain, diarrhea differential diagnosis includes rheumatological disorder such as SLE, neurological disorders such as MS, anxiety depression, IBS. With vast differe ntial diagnosis, I strongly encouraged primary care evaluation at [facility]. I have provided referral to clinics. I have provided referral to outpatient medicine physician. Patient denies this ideation. CBC chemistry PT PTT CT head EKG troponin all unremarkable. Patient also referred to [facility] for depressed mood Critical care attestation.: If time is entered above; I have spent that time in minutes in the direct care of this critically ill patient, excluding procedure time. ED Disposition Clinical Impression: Acute depression, Vasovagal syncope, Neuropathy Disposition: 01 HOME / SELF CARE / HOMELESS Is pt being admited?: No Does the pt Need Aspirin: No Condition: Stable Instructions: Neuropathic Pain, Near-Syncope, [id number], Major Depressive Di sorder, Adult, Syncope (ED) Prescriptions: Gabapentin 300 mg PO TID #90 capsule Referrals: [facility] [Outside] - 3-5 Days [facility] [Outside] - 3-5 Days [facility] [Outside] - 3-5 Days
--- NOTE | 2021-04-01 12:22 | Electrocardiograph Report ---
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
== END 2021-03-31 17:58 | disposition home or self-care (01) ==
LOC: ED 13:39
DX: F32.9 Major depressive disorder, single episode, unspecified (principal); R55 Syncope and collapse; G62.9 Polyneuropathy, unspecified; F41.9 Anxiety disorder, unspecified; Z90.49 Acquired absence of other specified parts of digestive tract; Z90.410 Acquired total absence of pancreas; Z72.89 Other problems related to lifestyle
CPT/HCPCS: 36415; 70450; 80053; 81001; 83735; 84484; 84703; 85025; 85610; 85730; 93005; 99284

== ENCOUNTER 2021-06-30 16:47 | Emergency (ER) | payer SELFPAY ==
[2021-07-01] MEDS ORDERED: oxyCODONE /ACETAMINOPHEN 5-325MG TAB ONE (01:27)
[2021-07-01 03:13] LABS: Alanine Aminotransferase 32 units/L (7-56); Albumin 4.4 g/dL (3.9-5); Blood Urea Nitrogen 5 mg/dL (7-17); Calcium 9.5 mg/dL (8.4-10.2); Hemolysis Index 7
[2021-07-01 03:15] LABS: BUN/Creatinine Ratio 10
[2021-07-01 03:36] LABS: Basophils # (Auto) 0.1 K/mm3 (0.0-0.1); Basophils % (Auto) 0.4 % (0.0-1.8); Eosinophils # (Auto) 0.1 K/mm3 (0.0-0.4); Eosinophils % (Auto) 0.5 % (0.0-4.3); Hematocrit 40.1 % (30.3-42.9); Hemoglobin 13.5 gm/dl (10.1-14.3); Lymphocytes # (Auto) 4.4 K/mm3 (1.2-5.4); Lymphocytes % (Auto) 29.6 % (13.4-35.0); Mean Corpuscular HGB Conc 34 % (30-34); Mean Corpuscular Volume 103 fl (79-97); Monocytes # (Auto) 0.9 K/mm3 (0.0-0.8); Monocytes % (Auto) 5.8 % (0.0-7.3); Platelet Count 331 K/mm3 (140-440); Red Blood Count 3.91 M/mm3 (3.65-5.03); Red Cell Distribution Width 15.1 % (13.2-15.2)
[2021-07-01] MEDS ORDERED: KETOROLAC 30 MG/1 ML INJ IV STA (04:22)
[2021-07-01] MEDS ORDERED: SODIUM CHLORIDE 0.9% 1000 ML 1,000 ML IV ONE (04:22)
[2021-07-01] MEDS ORDERED: diphenhydrAMINE 50 MG/ML VIAL IV STA (04:22)
[2021-07-01] MEDS ORDERED: METOCLOPRAMIDE 10 MG/2 ML INJ IV STA (04:44)
[2021-07-01 07:20] LABS: HCG Qualitative,Urine Negative (Negative)
--- NOTE | 2021-07-01 07:20 | Cat Scan Report ---
CT head/brain wo con INDICATION / CLINICAL INFORMATION: 41 years Female; Syncopal episodes with a possible seizure.. TECHNIQUE: Routine CT head without contrast. All CT scans at this location are performed using CT dos e reduction for ALARA by means of automated exposure control. COMPARISON: 03/31/2021 FINDINGS: BRAIN / INTRACRANIAL CONTENTS: No acute hemorrhage, mass effect, midline shift, hydrocephalus, or acu te, large territorial infarct. No signs of significant atrophy or chronic infarct. However, I cannot exclude a mild component of sup erior vermian atrophy, which can be seen with chronic EtOH usage. Partially empty sella noted. No significant white matter abnormality seen. CRANIOCERVICAL JUNCTION: No significant abnormality. ORBITS: No significant abnormality of visualized orbits. SINUSES / MASTOIDS: Visualized paranasal sinuses and mastoid air cells are essentially clear. ADDITIONAL FINDINGS: Prominent soft tissue is seen in the roof the nasopharynx, presumably related to reactive adenoidal tissue. Please clinically correlate. IMPRESSION: 1. No focal mass, hemorrhage, hydrocephalus, or acute, large territorial infarct. Signer Name: Herb Whitley MD, III Signed: 07/01/2021 12:32 AM Workstation Name: [id number]
[2021-07-01 07:25] LABS: Bacteria,Urine 1+ /HPF (Negative); Bilirubin,Urine NEG (Negative); Blood,Urine NEG (Negative); Color,Urine Yellow (Yellow); Mucus,Urine 3+ /HPF; Protein,Urine <15 mg/dL mg/dL (Negative); Urobilinogen,Urine < 2.0 mg/dL (<2.0)
[2021-07-01 08:14] VITALS: BP 150/93
--- NOTE | 2021-07-03 18:51 | Electrocardiograph Report ---
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
== END 2021-07-01 08:23 | disposition home or self-care (01) ==
LOC: ED 16:47
DX: R55 Syncope and collapse (principal); Z53.21 Procedure and treatment not carried out due to patient leaving prior to being seen by health care provider
CPT/HCPCS: 36415; 70450; 80053; 81001; 81025; 83735; 84484; 85025; 93005; 96361; 96374; 96375; J1200; J1885; J2765; J7030; Q0162